=== PATIENT | female | born 1955 | race Caucasian/White ===

== ENCOUNTER 2022-08-05 15:07 | Emergency (ER) | payer MEDICARE, OTHER ==
[2022-08-06] MEDS ORDERED: FEXO-310 PO (02:44)
[2022-08-06] MEDS ORDERED: ESTR0.5T28 PO (02:44)
== END 2022-08-05 15:35 | disposition left against medical advice (07) ==
LOC: ER 15:08
DX: R05.9 Cough, unspecified (principal); R09.81 Nasal congestion; Z53.21 Procedure and treatment not carried out due to patient leaving prior to being seen by health care provider